=== PATIENT | female | born 1995 | race American Indian/Alaskan Native ===

== ENCOUNTER 2021-12-17 17:57 | Emergency (ER) | payer SELFPAY ==
[2021-12-17 18:09] VITALS: BP 145/79
[2021-12-17] MEDS ORDERED: traMADol 50 MG TAB PO ONE (22:07)
--- NOTE | 2021-12-17 22:17 | Emergency Department Report ---
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 Patient states pain radiates to left pinky with tingling intermittently. Patient does do repetitive actions at work however loading of a belt moving boxes etc. Fall injury or trauma that she can recall. However symptoms are exacerbated by performing work duties. Symptoms are relieved by nothing tried. States she went to her checkup today with advice to get x-rays of her hand. Complaint: Injury to:: left - Related Data Previous Rx's Medication Instructions Recorded Last Taken Type Ibuprofen [Motrin 800 MG tab] 800 mg PO Q8HR PRN #30 tablet 03/25/20 Unknown Rx Nitrofurantoin Chaves/M-Cryst 100 mg PO Q12HR 7 Days #14 capsule 03/25/20 Unknown Rx [Macrobid CAP] Naproxen 500 mg PO BID PRN #30 tab 12/17/21 Unknown Rx Allergies Allergy/AdvReac Type Severity Reaction Status Date / Time No Known Allergies Allergy Unverified 03/25/20 17:23 ED Review of Systems ROS: Stated complaint: LT HAND PAIN Other details as noted in HPI Constitutional: denies: chills, fever Eyes: denies: eye pain, eye discharge, vision change ENT: denies: ear pain, throat pain Respiratory: denies: cough, shortness of breath, wheezing Cardiovascular: denies: chest pain, palpitations Endocrine: no symptoms reported Gastrointestinal: denies: abdominal pain, nausea, diarrhea Genitourinary: denies: urgency, dysuria, discharge Musculoskeletal: myalgia, other (left hand pain ) Skin: denies: rash, lesions Neurological: denies: headache, weakness, paresthesias Psychiatric: denies: anxiety, depression Hematological/Lymphatic: denies: easy bleeding, easy bruising ED Past Medical Hx - Surgical History Additional Surgical History: skin graft to right hand - Social History Smoking Status: Current Every Day Smoker Substance Use Type: Alcohol - Medications Home Medications: Home Medications Medication Instructions Recorded Confirmed Last Taken Type Ibuprofen [Motrin 800 MG tab] 800 mg PO Q8HR PRN #30 tablet 03/25/20 Unknown Rx Nitrofurantoin Chaves/M-Cryst 100 mg PO Q12HR 7 Days #14 capsule 03/25/20 Unknown Rx [Macrobid CAP] Naproxen 500 mg PO BID PRN #30 tab 12/17/21 Unknown Rx ED Physical Exam - General Limitations: No Limitations General appearance: alert, in no apparent distress - Head Head exam: Present: atraumatic, normocephalic - Eye Eye exam: Present: normal appearance, EOMI Pupils: Present: normal accommodation - ENT ENT exam: Present: mucous membranes moist - Neck Neck exam: Present: normal inspection, full ROM. Absent: tenderness - Respiratory Respiratory exam: Present: normal lung sounds bilaterally. Absent: respiratory distress, wheezes - Cardiovascular Cardiovascular Exam: Present: regular rate, normal rhythm, normal heart sounds. Absent: systolic murmur, diastolic murmur, rubs, gallop - GI/Abdominal GI/Abdominal exam: Present: soft, normal bowel sounds. Absent: distended, tenderness - Rectal Rectal exam: Present: deferred - Extremities Exam Extremities exam: Present: full ROM - Expanded Upper Extremity Exam Left Hand Wrist exam: Present: full ROM, tenderness (left 5 th digit pain with flexion and extension foreign service officer <3 sec, distal pulse +2 ). Absent: swelling, abrasion, laceration, ecchymosis, deformity, crepidus, dislocation, erythema, amputation, nail avulsion, subungual hematoma Neuro motor exam: Present: wrist extension intact, thumb opposition intact, thumb IP flexion intact, thumb adduction intact, fingers 2-5 abduction intact Neurosensory exam: Present: radial nerve intact Vascular: Present: normal capillary refill. Absent: pulse deficit radial art, pulse deficit ulnar art - Back Exam Back exam: Present: normal inspection, full ROM. Absent: tenderness - Neurological Exam Neurological exam: Present: alert, oriented X3 - Psychiatric Psychiatric exam: Present: normal affect, normal mood - Skin Skin exam: Present: warm, dry, intact, normal color. Absent: rash ED Course Vital Signs 12/17/21 18:06 Temperature 98.6 F Pulse Rate 83 Respiratory 16 Rate Blood Pressure 145/79 [Left] O2 Sat by Pulse 10 L Oximetry ED Medical Decision Making - Radiology Data Radiology results: report reviewed, image reviewed LEFT HAND 4 VIEWS INDICATION / CLINICAL INFORMATION: Left hand pain. COMPARISON: None available. FINDINGS: BONES / JOINT(S): No acute fracture or subluxation. No significant arthritis. SOFT TISSUES: No significant abnormality. ADDITIONAL FINDINGS: None. IMPRESSION: No acute abnormality. Signer Name: Brandon Romero MD Signed: 12/17/2021 11:20 PM Workstation Name: [id number] Transcribed By: RT Dictated By: Brandon Romero MD Electronically Authenticated By: Brandon Romero MD Signed Date/Time: 12/17/212319 DD/ 18 TD/TT: - Medical Decision Making Trays no fracture no subluxation no dislocation. Plan Velcro wrist splint, NSAIDs as needed pain, wrist exercises. Follow-up with your doctor in 2 to 3 days. Return to emergency department should symptoms worsen. Patient verbalized agreement understanding discharge plan. Patient DC'd home in stable condition at this time. Critical care attestation.: If time is entered above; I have spent that time in minutes in the direct care of this critically ill patient, excluding procedure time. ED Disposition Clinical Impression: Overuse injury Hand strain Qualifiers: Encounter type: initial encounter Laterality: left Qualified Code(s): S66.912A - Strain of unspecified muscle, fascia and tendon at wrist and hand level, left hand, initial encounter Disposition: HOME / SELF CARE / HOMELESS Is pt being admited?: No Does the pt Need Aspirin: No Condition: Stable Instructions: Preventing Overuse Injuries, Adult, How to Use Cold Therapy, [id number] Additional Instructions: Take medications as prescribed, use splint as directed. Follow-up with your doctor in 2 to 3 days. Return to emergency department should symptoms worsen Prescriptions: Naproxen 500 mg PO BID PRN #30 tab PRN Reason: pain Referrals: BRANDON ERWIN MD [Staff Physician] - 3-5 Days Forms: Work/School Release Form(ED) Time of Disposition: 23:46
--- NOTE | 2021-12-17 23:25 | XRay Report ---
LEFT HAND 4 VIEWS INDICATION / CLINICAL INFORMATION: Left hand pain. COMPARISON: None available. FINDINGS: BONES / JOINT(S): No acute fracture or subluxation. No significant arthritis. SOFT TISSUES: No significant abnormality. ADDITIONAL FINDINGS: None. IMPRESSION: No acute abnormality. Signer Name: Brandon Romero MD Signed: 12/17/2021 11:20 PM Workstation Name: [id number]
== END 2021-12-18 00:03 | disposition home or self-care (01) ==
LOC: ED 17:57
DX: S66.912A Strain of unspecified muscle, fascia and tendon at wrist and hand level, left hand, initial encounter (principal); F17.200 Nicotine dependence, unspecified, uncomplicated; F10.20 Alcohol dependence, uncomplicated; X58.XXXA Exposure to other specified factors, initial encounter; Y93.89 Activity, other specified; Y92.89 Other specified places as the place of occurrence of the external cause; Y99.8 Other external cause status
CPT/HCPCS: 99283